=== PATIENT | male | born 1980 | race Caucasian/White ===

== ENCOUNTER 2019-01-09 14:20 | Emergency (ER) | payer OTHER ==
[~2019-01-09] VITALS: Ht 175.3 cm; Wt 140.6 kg
[2019-01-09 14:21] VITALS: Ht 175.3 cm; Wt 140.6 kg
[2019-01-09 17:19] LABS: PLATELET COUNT 255 x10^3mcL (130-400); RED CELL DISTRIBUTION WIDTH 13.8 % (11.5-14.5)
[2019-01-09 17:28] LABS: CARBON DIOXIDE 29.1 mmol/L (21-32); CHLORIDE SERUM 106 mmol/L (98-107); CREATININE SERUM 0.9 mg/dL (0.7-1.3); GFR1 > 60 mL/min; GLUCOSE SERUM 105 mg/dL (74-106); POTASSIUM SERUM 4.3 mmol/L (3.5-5.1); SODIUM SERUM 143 mmol/L (136-145)
[2019-01-09 17:32] LABS: ALKALINE PHOSPHATASE 43 U/L (46-116); ALT/SGPT 71 U/L (16-63); AMYLASE 35 U/L (25-115); AST/SGOT 30 U/L (15-37); LIPASE 185 IU/L (73-393); TOTAL PROTEIN, SERUM 7.6 g/dL (6.4-8.2)
[2019-01-09 19:26] VITALS: BP 145/93
[2019-01-09 19:38] LABS: microscopic required? NO
[2019-01-09 19:50] LABS: UA SPECIFIC GRAVITY 1.015 (1.005-1.035); urine erythrocyte NEGATIVE (NEGATIVE)
== END 2019-01-09 19:26 | disposition home or self-care (01) ==
LOC: ED 14:20
PROVIDERS: Emergency Medicine
DX: K76.0 Fatty (change of) liver, not elsewhere classified (principal)
CPT/HCPCS: J1885; J2405; J3010; J7030